=== PATIENT | male | born 1965 | race Hispanic/Latino ===

== ENCOUNTER 2024-12-16 16:29 | Emergency (ER) | payer BC, OTHER ==
[~2024-12-16] VITALS: Ht 162.6 cm; Wt 83.9 kg
--- NOTE | 2024-12-16 16:47 | ERN ---
ED Note History of Present Illness Stated Complaint: RIGHT KNEE INJURY Chief Complaint: Knee Injury/Swelling Time Seen by MD: 16:37 Dictation: Patient is a 59-year-old male states he was walking when a [employer] dog ran into his right knee. He is having pain to the right medial knee. No history of prior knee injuries or surgeries. States he had been a unable to weight bear since the accident. He has not taken anything prior to arrival for pain Allergies: Coded Allergies: No Known Drug Allergies (Unverified Allergy, Unknown, 07/06/16) Home Meds Active Scripts Ibuprofen (Ibuprofen 800 mg Tab) 800 Mg Tab, 800 MG PO Q8H PRN for fever or pain, #30 TAB 0 Refills Prov:NANCIE ZHU AREA REPRESENTATIVE 12/16/24 Past Medical History Past Medical History: No Pertinent History Surgical History: Other Surgical History Other: LEFT KNEE SX RN Note Reviewed/Agreed w/PFSH: Yes Review of System Dictation CONSTITUTIONAL: Negative except for HPI HEAD/FACE: Negative except for HPI EENT: Negative except for HPI RESPIRATORY: Negative except for HPI GASTROINTESTINAL/ABDOMINAL: Negative except for HPI GENITOURINARY: Negative except for HPI MUSCULOSKELETAL: Negative except for HPI right knee pain INTEGUMENTARY: Negative except for HPI NEUROLOGICAL/PSYCH: Negative except for HPI HEMATOLOGIC/LYMPHATIC: Negative except for HPI All Systems Negative, Except as noted above. 13 point review of systems assessed and all negative except for above. Initial Vital Sign VS Vital Signs Date Time Temp Pulse Resp B/P (MAP) Pulse Ox O2 Delivery O2 Flow Rate FiO2 12/16/24 16:42 99.0 67 16 128/87 97 Room Air 12/16/24 17:24 0 21 Physical Exam Dictation Vital Signs reviewed General Appearance: Alert, oriented x 3, mild acute distress, well developed, nourished. Head and Face: non-traumatic. Eyes: PERRL, pink conjunctivas, eyelid no trauma, anterior chamber with arcus senilis. Ears: Pinnas intact and no signs of trauma or erythema ear canals clear and no discharge TM no erythema Nose: No discharge, no bleeding. Oropharynx: Mouth normal, tongue pink, pharynx clear,no erythema, tonsils no exudates, no abscesses noted, mucous membrane moist Neck: Supple, non-tender, no thyromegaly, no masses, no JVD, no bruits Breast:Deferred Chest:No tenderness, no crepitus, no paradoxical movement, no retractions Lungs:Clear, well-ventilated, symmetric, no rales, no wheezing, no rhonchi, no stridor, good breath sounds bilaterally Heart: Regular rate, regular rhythm, no murmur, no gallops Vascular: no peripheral edema, Abdomen: Soft, positive bowel sounds, nondistended, no guarding, nontender, no rebound, no masses no hepatomegaly, no splenomegaly, no Rios's sign, no hernias. Rectal: Deferred Genital: Deferred Neurological: Normal speech, motor function intact, sensory function intact Musculoskeletal: Neck nontender, full range of motion, back nontender, full range of motion, Extremities: Mild right medial knee pain without effusion laxative Skin: Color pink, dry, no turgor, no rash, no lacerations, no abrasions, no contusions. Lymphatic: Deferred Results (Laboratory/Radiology) Laboratory/Radiology Right knee x-ray negative except for degenerative Labs Reviewed?: Yes ED Course ED Course Orders Procedure Category Date Status Time Knee 3vws Rt RAD 12/16/24 Resulted 16:36 Ketorolac 60mg/2ml PHA 12/16/24 Complete (Toradol 60mg/2ml) 17:00 Crutches W/Training CPOE 12/16/24 Transmitted (Er) 16:47 Current Medications Medications (Trade) Dose Ordered Sig/Karly Route PRN Reason Start Time Stop Time Status Last Admin Dose Admin Ketorolac Tromethamine (toRADol 60MG/ 2ML) 60 mg ONCE ONCE IM 12/16/24 17:00 12/16/24 17:01 DC 12/16/24 17:19 Vital Signs Date Time Temp Pulse Resp B/P (MAP) Pulse Ox O2 Delivery O2 Flow Rate FiO2 12/16/24 19:20 98.2 68 16 122/80 98 Room Air* 0 21 12/16/24 17:24 99.0 65 16 126/85 98 Room Air* 0 21 12/16/24 16:42 99.0 67 16 128/87 97 Room Air 1910/patient states pain is markedly reduced. We will be discharged home with right knee contusion on crutches told to see his primary care doctor for referral to Orthopedics Medical Decision Making MDM Medical discharge making based on x-ray of right knee. X-ray with degenerative changes only Discharged home on crutches and told follow up with Orthopedics next 1-2 DX & DISP Disposition: Discharge Departure Impression: Primary Impression: Contusion of right knee, initial encounter Condition: Stable Scripts Ibuprofen (Ibuprofen 800 mg Tab) 800 Mg Tab 800 MG PO Q8H PRN for fever or pain, #30 TAB 0 Refills Prov: NANCIE ZHU NP 12/16/24 Additional Instructions: Follow-up with primary care provider in 1 to 2 days. Take medications as directed here in the emergency room. Okay to continue home medications unless otherwise discussed during your visit in the emergency room today. Return to your nearest emergency room if symptoms worsen or if there is no improvement. Call 911 if you need immediate assistance. Take Tylenol or Motrin [id number] as needed and if no contraindications are present. Increase oral hydration. A wound culture or urine culture was ordered here in the emergency room department please follow-up with primary care provider and advise them to get repeat ports from our facility. If you had any Reed wrap/splints that were applied here, please do not remove them until you see your primary care or specialty. Crutches and no weight-bearing until cleared by Orthopedics, call for an appointment in next 1-2 days. Apply cool compresses to pain three to 4 times a day. Take ibuprofen as needed with food. Referrals: SHAVON FRIEDMAN (PCP) NICOLE HERBERT MD Time of Disposition: 19:13 I have reviewed the case, and I agree with, Diagnosis and Plan NANCIE ZHU NP Dec 16, 2024 16:47 CLAUDIA FUENTES DO Dec 17, 2024 12:14
[2024-12-16] MEDS: ketOROlac 60 MG VIAL (30MG/ML) IM ONE (17:19)
[2024-12-16] MEDS ORDERED: IBUP-2077 PO (19:15)
[2024-12-16 19:20] VITALS: BP 122/80; PULSE 68; RESP 16; TEMP 98.3; O2SAT 98
--- NOTE | 2024-12-16 21:02 | HMCIMG ---
KNEE 3VWS RT CLINICAL HISTORY: injury pain COMPARISON: None TECHNIQUE: AP lateral and leak images were obtained. FINDINGS: No obvious fracture or dislocation. No joint effusion. The soft tissues appear unremarkable. No radiopaque foreign bodies. IMPRESSION: No acute findings.
== END 2024-12-16 19:26 | disposition home or self-care (01) ==
LOC: EDH 16:29
DX: S80.01XA Contusion of right knee, initial encounter (principal); X58.XXXA Exposure to other specified factors, initial encounter; Y93.01 Activity, walking, marching and hiking; Y92.89 Other specified places as the place of occurrence of the external cause; Y99.8 Other external cause status
CPT/HCPCS: 99284; 73562; 96372; J1885